=== PATIENT | male | born 1990 | race Caucasian/White ===

== ENCOUNTER 2017-04-05 08:42 | Emergency (ER) | payer SELFPAY ==
[2017-04-05 08:51] VITALS: BP 135/88; PULSE 87; RESP 22; TEMP 98.1; O2SAT 97
--- NOTE | 2017-04-05 09:12 | EDPHY ---
H & P Stated Complaint: hx anxiety/increasing panic attacks since traveling last week for HPI/ROS: CHIEF COMPLAINT: Anxiety, nausea HISTORY OF PRESENT ILLNESS: Patient complains of increasing anxiety and panic attacks week. This was precipitated by fight to awaiting he feels. Mild-to- moderate symptoms that have been constant. They do wax and wane. Minimal improvement with his Xanax. No chest pain or shortness of breath. Some hyperventilation with paresthesia. He has no trauma or injury. He is concerned that the duration of the symptoms, but he feels this is his anxiety. Patient is very forthcoming with his prescriptions and prescribing physicians. He is not asking for any benzodiazepines. He says that he was prescribed Lexapro on March 17 by his physician, but he has been hesitant to start this due to the fear of side effects. No other associated complaints or modifying factors. REVIEW OF SYSTEMS: Ten systems reviewed and are negative unless otherwise noted in the HPI PAST MEDICAL HISTORY: Anxiety SOCIAL HISTORY: Nonsmoker. Works here in [employer] FAMILY HISTORY: Noncontributory EXAMINATION General Appearance: Alert, no distress fidgeting Head: normocephalic, atraumatic Eyes: Pupils equal and round, no conjunctival pallor or injection ENT, Mouth: Mucous membranes moist widely patent Neck: Normal inspection, supple, non-tender Respiratory: Lungs are clear to auscultation. No wheezing, rhonchi or crackles. No tachypnea or distress Cardiovascular: Regular rate and rhythm. No murmur Gastrointestinal: Abdomen is soft and nontender Back: non-tender, no bony abnormalities Neurological: GCS 15. A&O, nonfocal, normal gait Skin: Warm and dry, no rash Extremities: Nontender, no pedal edema Psychiatric: Anxious. No suicidal ideation. No homicidal ideation. DIFFERENTIAL DIAGNOSES: Including but not limited to anxiety reaction, panic MDM: 9:10 a.m. Anxiety reaction the patient with known anxiety. He has no thoughts of self- harm or harm towards others. Vital signs were well within normal limits. Examination is unremarkable. He is taking alprazolam for his anxiety. Is forthcoming on about his prescriptions. He is not asking for any benzodiazepines. I will trial him on hydroxyzine as Zofran for him. He is to contact his prescribing physician to discuss the Lexapro that she already prescribed for him. He is comfortable with this plan and discharged home stable condition. SUPERVISION: This patient was independently evaluated without direct examination by the attending physician. Case was discussed with attending physician. Source: Patient Exam Limitations: No limitations - Personal History Current Tetanus/Diphtheria Vaccine: Yes - Medical/Surgical History Hx Asthma: No Hx Chronic Respiratory Disease: No Hx Diabetes: No Hx Cardiac Disease: No Hx Renal Disease: No Hx Cirrhosis: No Hx Alcoholism: No Hx HIV/AIDS: No Hx Splenectomy or Spleen Trauma: No Other PMH: anxiety. surgery none - Social History Smoking Status: Never smoked Constitutional: Initial Vital Signs Temperature (C) 98.1 F 04/05/17 08:49 Heart Rate 87 04/05/17 08:49 Respiratory Rate 22 H 04/05/17 08:49 Blood Pressure 135/88 H 04/05/17 08:49 O2 Sat (%) 97 04/05/17 08:49 O2 Delivery Mode Room Air Allergies/Adverse Reactions: prednisone [Prednisone] Allergy (Unknown, Verified 04/05/17 08:47) Home Medications: Medication Instructions Recorded ALPRAZolam 04/05/17 Ondansetron Odt [Zofran Odt 4 mg 4 mg PO Q6 PRN #12 tab 04/05/17 (*)] hydrOXYzine HCL [Hydroxyzine HCl] 50 mg PO Q6-8PRN PRN #20 tablet 04/05/17 Departure - Departure Disposition: Home, Routine, Self-Care Clinical Impression: Anxiety, Nausea Condition: Good Instructions: Acute Nausea and Vomiting (ED), Anxiolysis in Adults (ED) Additional Instructions: 1. Medications as prescribed as needed 2. Follow up with her prescribing physician to discuss the Lexapro 3. Return to the ER for any changes your condition, active vomiting Referrals: Kee Davis DO [Primary Care Provider] - As per Instructions Prescriptions: hydrOXYzine HCL [Hydroxyzine HCl] 50 mg PO Q6-8PRN PRN #20 tablet PRN Reason: Itching Ondansetron Odt [Zofran Odt 4 mg (*)] 4 mg PO Q6 PRN #12 tab PRN Reason: Nausea/Vomiting, Use 1st
== END 2017-04-05 09:19 | disposition home or self-care (01) ==
DX: F41.9 Anxiety disorder, unspecified (principal)